=== PATIENT | male | born 1970 | race Caucasian/White ===

== ENCOUNTER 2018-07-03 13:23 | Emergency (ER) | payer SELFPAY ==
[2018-07-03 13:45] VITALS: BMI 23.4
[2018-07-03 13:49] VITALS: BP 137/82; PULSE 79; RESP 18; TEMP 98.2; O2SAT 96
--- NOTE | 2018-07-03 15:13 | C.PDOC ---
History Of Present Illness 48 year old male presents to ED with complaint right knee, right hip and right trapezius pain s/p slip and fall that occurred 2 days ago. Patient noted no significant pain at time of injury. He states that the pain worsened yesterday. He applied ice packs, but used no NSAIDs. He denies head impact, headache, loss of consciousness, weakness, or numbness. Time Seen by Provider: 07/03/18 14:02 Chief Complaint (Nursing): Lower Extremity Problem/Injury History Per: Patient History/Exam Limitations: no limitations Onset/Duration Of Symptoms: Days (2), Gradual Current Symptoms Are (Timing): Still Present - Hip Description Of Injury: Fell - Knee Description Of Injury: Fell Alleviating Factor(s): denies: Ice Therapy - Ankle/Foot Alleviating Factor(s): denies: Ice Therapy Past Medical History Reviewed: Historical Data, Nursing Documentation, Vital Signs Vital Signs: Last Vital Signs Temp 98.2 F 07/03/18 13:45 Pulse 79 07/03/18 13:45 Resp 18 07/03/18 13:45 BP 137/82 07/03/18 13:45 Pulse Ox 96 07/03/18 13:45 Primary Care Provider: Jose Miller - Medical History PMH: Hypercholesterolemia Surgical History: Appendectomy Family History: States: Unknown Family Hx - Social History Hx Tobacco Use: Yes Hx Alcohol Use: Yes Hx Substance Use: Yes - Immunization History Hx Tetanus Toxoid Vaccination: No Hx Influenza Vaccination: No Hx Pneumococcal Vaccination: No Review Of Systems Constitutional: Negative for: Weakness Eyes: Negative for: Vision Change Musculoskeletal: Positive for: Shoulder Pain (right trapezius pain ), Leg Pain (right knee and right hip pain) Neurological: Negative for: Weakness, Numbness, Headache Physical Exam - Physical Exam Appears: Well, Non-toxic, No Acute Distress Skin: Normal Color, Warm, Dry Head: Normacephalic Eye(s): bilateral: Normal Inspection Neck: Normal ROM, Supple Chest: Symmetrical, No Deformity Extremity: Normal ROM, Tenderness (to the right trapezius and the right knee), Capillary Refill (<2 seconds), No Deformity, No Swelling Pulses: Left Radial: Normal, Right Radial: Normal Neurological/Psych: Oriented x3, Normal Speech, Normal Cognition, Normal Motor, Normal Sensation Gait: Steady ED Course And Treatment O2 Sat by Pulse Oximetry: 96 (in RA) Pulse Ox Interpretation: Normal - Other Rad LS spine X-Ray: Interpreted by Me (neg) C-spine X-Ray: Interpreted by Me (old fixation, no cute fx/disloc, + loss of normal curvature) R knee X-Ray: Interpreted by Me (? tiny fx inferior pole of patella) Progress Note: Right knee x-ray, C-spine x-ray, and LS-spine x-ray ordered for patient. Patient given Motrin 600 mg PO. Reevaluation Time: 15:11 Reassessment Condition: Unchanged Medical Decision Making Medical Decision Making: fall with R knee contusion tiny fx inferior patella, R hip and lumbar strain, R trapezius strain, old cervical fixation with ? new loss of normal cervical lordosis Disposition Doctor Will See Patient In The: Office Counseled Patient/Family Regarding: Studies Performed, Diagnosis - Disposition Referrals: [facility] [Outside] [facility] [Outside] [facility] [Outside] [facility] [Outside] Benedict Bright III, MD [Staff Provider] - Jose Miller MD [Medical Doctor] - Disposition: HOME/ ROUTINE Disposition Time: 15:13 Condition: GOOD Additional Instructions: knee wrap for pain tiny fracture inferior pole of patella C-Spine and LS Spine films nothing acute continue ice packs 1/2 hour per hour, nothing hot. Motrin/Advil 400-600 mg every 6 hours as needed. Call to make follow-up appt with Dr. Bright- [facility] [employer] Instructions: Patella Fracture, Lumbar Muscle Strain (DC) Forms: [facility] (Peruvian) - Clinical Impression Clinical Impression: Patellar fracture, Lumbar spine strain - Scribe Statement The provider has reviewed the documentation as recorded by the Scribe (Alysha Robins) All medical record entries made by the Scribe were at my direction and personally dictated by me. I have reviewed the chart and agree that the record accurately reflects my personal performance of the history, physical exam, medical decision making, and the department course for this patient. I have also personally directed, reviewed, and agree with the discharge instructions and disposition.
--- NOTE | 2018-07-03 15:28 | RAD ---
Date of service: 07/03/2018 PROCEDURE: Radiographs of the Lumbar Spine. HISTORY: fall, R hip discomfort COMPARISON: No prior. TECHNIQUE: 3 views obtained. FINDINGS: BONES: There is normal alignment of the lumbar vertebral bodies. There is normal lumbar lordosis. There is no acute fracture, spondylolysis or spondylolisthesis. Bone mineralization is normal. DISC SPACES: There is mild degenerative disc disease at L5-S1 with reduced disc height and facet arthropathy. The remaining disc heights are maintained. OTHER FINDINGS: Surgical clips in the right lower quadrant and right hemipelvis. IMPRESSION: No acute fracture, spondylolysis or spondylolisthesis. Mild degenerative disc disease at L5-S1.
--- NOTE | 2018-07-03 15:35 | RAD ---
Date of service: 07/03/2018 PROCEDURE: Right Knee Radiographs. HISTORY: R knee contusion COMPARISON: None. TECHNIQUE: 3 views obtained. FINDINGS: BONES: Bone alignment and mineralization are normal. There is no acute displaced fracture or bone destruction. There is a well-circumscribed ossific density inferior to the inferior pole of patella. JOINTS: There is mild tricompartmental degenerative osteoarthrosis with reduced joint spaces, marginal osteophytes and tibial spiking, worse in the medial compartment. JOINT EFFUSION: None. OTHER FINDINGS: None. IMPRESSION: No acute displaced fracture or dislocation. Well-circumscribed ossific density inferior to the inferior pole of patella likely represents a detached enthesophyte rather than fracture. Please correlate with point tenderness. The final report is tagged to the PA review folder.
--- NOTE | 2018-07-03 15:40 | RAD ---
Date of service: 07/03/2018 PROCEDURE: Cervical Spine Radiographs. HISTORY: Pain. COMPARISON: None available. TECHNIQUE: 3 views obtained. FINDINGS: BONES: There is reversal of normal cervical lordosis with moderate cervical kyphosis. Vertebral alignment is normal. There is diffuse bone demineralization. No acute fracture or spondylolisthesis. The craniocervical junction is normal. The atlantoaxial joint is normal. DISC SPACES: Status post radiopaque disc grafts at C5-6 and C6-7. There is mild degenerative disc disease at C4-5 with anterior osteophytes and reduced disc height. SOFT TISSUES: Normal. No prevertebral soft tissue swelling. OTHER FINDINGS: None. IMPRESSION: Radiopaque disc grafts are identified at C5-6 and C6-7. Mild degenerative disc disease at C4-5. Reversal of normal cervical lordosis with moderate cervical kyphosis.
== END 2018-07-03 15:25 | disposition home or self-care (01) ==
LOC: C.ER 13:23
DX: S39.012A Strain of muscle, fascia and tendon of lower back, initial encounter (principal); S82.001A Unspecified fracture of right patella, initial encounter for closed fracture; W01.0XXA Fall on same level from slipping, tripping and stumbling without subsequent striking against object, initial encounter; Z72.0 Tobacco use; E78.00 Pure hypercholesterolemia, unspecified